=== PATIENT | female | born 1955 | race Caucasian/White ===

== ENCOUNTER 2023-11-02 11:53 | Emergency (ER) | payer OTHER ==
[~2023-11-02] VITALS: Ht 160 cm; Wt 79.4 kg
[2023-11-02 12:48] LABS: BASOPHILS % (AUTO) 0.5 % (0.0-2.0); EOSINOPHILS # (AUTO) 0.2 K/uL (0.0-0.7); EOSINOPHILS % (AUTO) 3.1 % (0.0-7.0); HEMATOCRIT 38.8 % (31.2-41.9); LYMPHOCYTES # (AUTO) 2.2 K/uL (0.8-4.8); LYMPHOCYTES % (AUTO) 29.8 % (20.5-51.5); MEAN CORPUSCULAR HEMOGLOBIN 30.5 uug (24.7-32.8); MEAN CORPUSCULAR HGB CONC 34 g/dL (32.3-35.6); MEAN CORPUSCULAR VOLUME 90.8 fL (75.5-95.3); MONOCYTES # (AUTO) 0.7 K/uL (0.1-1.30); MONOCYTES % (AUTO) 8.8 % (0.0-11.0); NEUTROPHILS # (AUTO) 4.3 K/uL (1.8-8.9); NEUTROPHILS % (AUTO) 57.8 % (38.5-71.5); PLATELET COUNT (AUTO) 210 K/uL (179-408); RED BLOOD CELL COUNT(AUTO) 4.27 MIL/uL (3.63-4.92); RED CELL DISTRIBUTION WIDTH 13.3 % (12.3-17.7); WHITE BLOOD COUNT (AUTO) 7.5 K/uL (3.8-11.8)
[2023-11-02 12:51] LABS: DIFFERENTIAL COMMENT 1
[2023-11-02 13:00] LABS: CALCIUM 8.9 mg/dL (8.5-10.1); CREATININE 0.8 mg/dL (0.6-1.3); POTASSIUM 4.6 mmol/L (3.5-5.1)
[2023-11-02 13:07] LABS: ALBUMIN 3.3 g/dL (3.4-5.0); BILIRUBIN,TOTAL 0.4 mg/dL (0.2-1.0); MAGNESIUM 2.1 mg/dL (1.8-2.4); TOTAL PROTEIN, SERUM 6.5 g/dL (6.4-8.2)
[2023-11-02 13:15] LABS: THYROID STIMULATING HORMONE 1.018 mIU/mL (0.358-3.740)
[2023-11-02] MEDS ORDERED: hydrALAZINE HCL 25 MG TABLET ONE (13:29)
[2023-11-02] MEDS: hydrALAZINE HCL 25 MG TABLET PO ONE (13:33)
[2023-11-02] MEDS ORDERED: CLON0.1T PO (14:50)
[2023-11-02] MEDS ORDERED: CLONIDINE HCL 0.1 MG TABLET ONE (15:04)
[2023-11-02] MEDS: CLONIDINE HCL 0.1 MG TABLET PO ONE (15:09)
[2023-11-02 15:40] VITALS: BP 141/72; TEMP 98.2; O2SAT 97
== END 2023-11-02 15:41 | disposition home or self-care (01) ==
LOC: ER 11:53
DX: I10 Essential (primary) hypertension (principal); E46 Unspecified protein-calorie malnutrition; G43.909 Migraine, unspecified, not intractable, without status migrainosus; E03.9 Hypothyroidism, unspecified; Z79.899 Other long term (current) drug therapy; Z68.31 Body mass index [BMI] 31.0-31.9, adult
CPT/HCPCS: 36415; 83735; 84443; 84484; 85025; 93005; A4606; A4663